=== PATIENT | male | born 1960 | race Caucasian/White ===

== ENCOUNTER 2017-01-17 06:13 | Inpatient (IN) | payer OTHER ==
[2017-01-02 09:44] LABS: URINE BILIRUBIN NEGATIVE (Negative); URINE BLOOD NEGATIVE (Negative); URINE COLOR YELLOW; URINE GLUCOSE-RANDOM* NEGATIVE (Negative); URINE KETONES TRACE (Negative); URINE LEUKOCYTES-REFLEX NEGATIVE (Negative); URINE PROTEIN (DIPSTICK) NEGATIVE (Negative); URINE SPECIFIC GRAVITY 1.015 (1.003-1.035); URINE UROBILINOGEN 0.2 E.U./dl (0.2-1.0)
[2017-01-02 09:47] LABS: CREATININE 0.7 mg/dL (0.7-1.3); POTASSIUM 4.5 mmol/L (3.5-5.1)
[2017-01-02 09:50] LABS: INR 1.1; PROTIME 11.4 Seconds (9.3-11.4)
[2017-01-17] VITALS (12 sets, daily range): BP systolic 44–136; BP diastolic 28–84
[~2017-01-17] VITALS: Ht 172.7 cm; Wt 75.3 kg
--- NOTE | ~2017-01-17 | EKG ---
[address] [address] ELECTROCARDIOGRAM REPORT Name: MARCEL BARAJAS Room #: 208-P ADM IN M.R.#: [id number] Admission: 01/17/17 Attend Phys: Kevyn Chaudhary MD Discharge: Date of : 56 Report #: [id number] THIS REPORT FOR: //name// 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
--- NOTE | ~2017-01-17 | O ---
[facility] [place] [address] [place] [address] OPERATIVE REPORT Name: MARCEL BARAJAS Room #: 208-P ADM IN M.R.#: [id number] Admission: 01/17/17 Attend Phys: Kevyn Chaudhary MD Discharge: Date of : 56 Report #: [id number] THIS REPORT FOR: //name// CC: [facility] DATE OF SERVICE: 01/17/2017 PREOPERATIVE DIAGNOSIS: End-stage degenerative arthritis, right knee with flexion contracture and varus malalignment. POSTOPERATIVE DIAGNOSIS: End-stage degenerative arthritis, right knee with flexion contracture and varus malalignment. PROCEDURE: Right total knee arthroplasty. SURGEON: Kevyn Chaudhary MD INDICATIONS: This 56-year-old gentleman presents with progressive bilateral knee pain with clinical and radiographic findings demonstrating significant varus malalignment and mild flexion contracture. Symptoms are worse on the right side. He has elected to go ahead with right total knee arthroplasty. We have discussed treatment options and risks and benefits. He and his understand well and wish to proceed. DESCRIPTION OF PROCEDURE: The patient was taken to the operating room where he was placed under general anesthesia. Prophylactic intravenous antibiotics were administered. The right knee and leg were meticulously prepped and draped and a thigh tourniquet inflated to 300 mmHg. An anterior longitudinal skin incision was made and carried through the medial retinaculum. The patella was reflected laterally. Marked degenerative change in all 3 compartments was noted. The DePuy PFC knee system was utilized and intramedullary guides were used on both the femur and the tibia. The femur was cut in 5 degrees of valgus and the tibia cut perpendicular to the long axis of bone. Sufficient bone was resected to allow correction of the mild preoperative flexion contracture and to allow correction of the moderate preoperative varus malalignment. The femur seemed best suited for a size 5 right femoral component. The tibia was best suited for a size 4 tibial component. A 10 mm polyethylene insert fit nicely and resulted in satisfactory alignment, range of motion and stability. A limited release of the medial capsule and elevation of the MCL along the medial tibial border was accomplished to allow further correction of the varus malalignment. The patellar surface was resected and a 38 mm patellar button seemed to fit nicely. Appropriate anchor holes were created. The surfaces were thoroughly irrigated and dried. The intramedullary canal was blocked with a bone block on both the femoral and tibial sides. Methyl methacrylate cement was then mixed and injected into the porous surface of the proximal tibia. The DePuy PFC size [address] [address] OPERATIVE REPORT Name: MARCEL BARAJAS Room #: 208-P [facility] IN M.R.#: [id number] Admission: 01/17/17 Attend Phys: Kevyn Chaudhary MD Discharge: Date of : 56 Report #: [id number] tibial component was impacted into position in appropriate alignment. It seated nicely and appeared to be secure. A 10 mm polyethylene insert was snapped into place. It also seated nicely and appeared to be secure. Excess cement was removed from around the margin of the plan. A press fit noncemented right size 5 femoral component was then impacted on to the distal femur. This seated nicely and appeared to be secure. A 38 mm patellar button was cemented into place using appropriate anchor holes and the methyl methacrylate cement. A patellar clamp was used until the cement had hardened. All excess cement was removed from around its margin. Once the cement was firm, range of motion, alignment, and stability were once again assessed and felt to be satisfactory. The knee demonstrated full knee extension and flexion beyond 130 degrees with satisfactory alignment. There was significant improvement in the preoperative varus and good improvement in the preoperative flexion contracture. The knee seemed stable. At this point, the knee was copiously irrigated. A single Hemovac was left in the wound exiting through a separate stab incision. The fascia was then closed with #1 Vicryl sutures. The tourniquet was deflated after a total tourniquet time of 45 minutes. The subcutaneous tissues were closed with 0 Monocryl and the skin was closed with skin mal. A sterile dressing was applied. The patient was awakened and returned to recovery room in good condition. <ELECTRONICALLY SIGNED> By: Kevyn Chaudhary MD 01/18/17 1011 1133 1145 Kevyn Chaudhary MD /nt
[~2017-01-17 06:13] MED LIST: AMLODIPINE BESY10 MG PO; ATIVAN1 MG PO; B COMPLETE1 EAC1 PO; CENTRUM SILVER1 EAC2 PO; CLONAZEPAM 1 MG1 M1 PO; DEPAKOTE500 MG PO; FLEXERIL PO; KEPPRA 500 MG500 M2 PO; MIRTAZAPINE15 M2 PO; NORCO 10-325 T1 EACH PO; VITAMIN D3400 UNIT PO; VITAMINC500 PO; ZESTRIL40 MG PO; ZOCOR20 MG PO; ZOLOFT50 MG PO
[2017-01-17 15:03] LABS: HEMATOCRIT 33.4 % (42.0-52.0); HEMOGLOBIN 11.3 gm/dL (14.0-18.0)
[2017-01-18] VITALS (9 sets, daily range): BP systolic 89–142; BP diastolic 44–85
[2017-01-18 04:10] LABS: HEMATOCRIT 25.9 % (42.0-52.0); MCH 33.5 pg (26.0-34.0); MCV 95.8 fL (80.0-100.0); RBC 2.7 mil/uL (4.50-6.00); RDW 13.1 % (10.5-14.5); WBC 9.9 thou/uL (4.0-11.0)
[2017-01-18 04:14] LABS: ALBUMIN 3.1 g/dL (3.4-5.0); CALCIUM 8.4 mg/dL (8.5-10.1); CREATININE 0.8 mg/dL (0.7-1.3); PHOSPHORUS 5.2 mg/dL (2.5-4.9)
[2017-01-19 04:10] VITALS: BP 151/75
[2017-01-19 04:56] LABS: HEMATOCRIT 22.4 % (42.0-52.0); HEMOGLOBIN 7.7 gm/dL (14.0-18.0); MCH 33.1 pg (26.0-34.0); MCHC 34.3 g/dL (28.0-37.0); MCV 96.7 fL (80.0-100.0); RBC 2.32 mil/uL (4.50-6.00); RDW 13.1 % (10.5-14.5)
[2017-01-19 05:18] LABS: CALCIUM 8.3 mg/dL (8.5-10.1); CREATININE 0.9 mg/dL (0.7-1.3); POTASSIUM 4.3 mmol/L (3.5-5.1)
[2017-01-19 08:00] VITALS: BP 132/65
[2017-01-19 20:53] VITALS: BP 126/57
[2017-01-20 03:51] LABS: HEMATOCRIT 21.8 % (42.0-52.0); HEMOGLOBIN 7.6 gm/dL (14.0-18.0); MCH 33.6 pg (26.0-34.0); MCHC 34.8 g/dL (28.0-37.0); MCV 96.7 fL (80.0-100.0); RBC 2.26 mil/uL (4.50-6.00); RDW 13.1 % (10.5-14.5)
[2017-01-20 03:57] LABS: CALCIUM 8.3 mg/dL (8.5-10.1); CREATININE 0.7 mg/dL (0.7-1.3); POTASSIUM 4.7 mmol/L (3.5-5.1)
[2017-01-20 04:28] VITALS: BP 125/69
[2017-01-20 08:00] VITALS: BP 129/60
[2017-01-20] MEDS ORDERED: IRON325 PO (11:06)
[2017-01-20] MEDS ORDERED: PERCOCET 10-321 EACH PO (11:40)
[2017-01-20] MEDS ORDERED: MS CONTIN15 MG PO (11:40)
[2017-01-20 11:43] VITALS: BP 136/84
== END 2017-01-20 14:41 | disposition home health service (06) | DRG 470 ==
LOC: 2N 06:13 → TBA 06:13 → PRE 08:50 → 5S 13:25 → PRE 13:45 → 2N 15:29 → PRE 17:01 → 5S 01-18 10:57
PROVIDERS: Hospitalist; Orthopaedic Surgery
PROC: 0SRC0J9 Replacement of Right Knee Joint with Synthetic Substitute, Cemented, Open Approach (ICD-10-PCS; principal; 2017-01-17)
DX: M17.11 Unilateral primary osteoarthritis, right knee (principal); D62 Acute posthemorrhagic anemia; E87.1 Hypo-osmolality and hyponatremia; M24.561 Contracture, right knee; I95.81 Postprocedural hypotension; G40.909 Epilepsy, unspecified, not intractable, without status epilepticus; E86.0 Dehydration; F41.8 Other specified anxiety disorders; Z79.899 Other long term (current) drug therapy; Z88.2 Allergy status to sulfonamides
CPT/HCPCS: 10081; 10785; 50010; 50101; 50415; 50954; 51130; 51225; 51412; 51771; 53000; 53364; 56525; 62110; 62900; 70005

== ENCOUNTER → 2020-12-28 | Outpatient (CLI) | payer OTHER ==
[~2020-12-28] MED LIST changes: +ATIVAN1 M1 PO; -ATIVAN1 MG PO; -B COMPLETE1 EAC1 PO; +B COMPLEX1 EACH PO; +IRON325 PO; -KEPPRA 500 MG500 M2 PO; +KEPPRA1000 MG PO; +MS CONTIN15 MG PO; +PERCOCET 10-321 EACH PO; +SINGULAIR 10 MG10 MG PO; +VITAMIN D325 MC3 PO; -VITAMIN D3400 UNIT PO
[2020-12-28 14:26] LABS: HEMATOCRIT 40.6 % (42.0-52.0); HEMOGLOBIN 13.7 gm/dL (14.0-18.0); MCH 32.9 pg (26.0-34.0); MCHC 33.7 g/dL (28.0-37.0); MCV 97.6 fL (80.0-100.0); RBC 4.16 mil/uL (4.50-6.00); RDW 13.5 % (10.5-14.5); WBC 3.6 thou/uL (4.0-11.0)
[2020-12-28 14:34] LABS: CALCIUM 9.6 mg/dL (8.5-10.1); CREATININE 1.2 mg/dL (0.7-1.3)
[2020-12-28 14:37] LABS: INR 1.1; PROTIME 11.9 Seconds (10.5-12.1)
== END ==
LOC: LAB 12:44
PROVIDERS: Orthopaedic Surgery; ATTEND Student in an Organized Health Care Education/Training Program
DX: Z01.812 Encounter for preprocedural laboratory examination (principal); Z20.822 Contact with and (suspected) exposure to COVID-19

== ENCOUNTER 2021-01-02 06:40 | Inpatient (IN) | payer OTHER ==
[2021-01-02] VITALS (11 sets, daily range): BP systolic 97–126; BP diastolic 54–70
[~2021-01-02] VITALS: Ht 152.4 cm; Wt 83.9 kg
--- NOTE | 2021-01-02 13:46 | NUR ---
At 1320 patients O2 was desating to upper 77 to 88. While asleep. No hx of sleep apnea per patient or wear o2 at home. While awake patient o2 back up to 92-94 on room air. RN placed patient on 2L nasal canula while asleep will try weaning later after anesthesia wears off.
--- NOTE | 2021-01-02 15:10 | NUR ---
PT ADMITTED RELATED TO LT TOTAL KNEE REPLACEMENT. CM REVIEWED CHART AND SPOKE WITH CARE TEAM. CM MET WITH PT AT BEDSIDE THIS DAY. PT APPEARED TO BE A&O X4. CM ROLE INTRODUCED. PT INDICATED HE HAS EPILEPSY AND ASKED THAT CM SPEAK MORE SLOWLY. PT INDICATED HE RESIDES IN A HOUSE WITH HIS SPOUSE. 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 HE STATED THERE THERE ARE 15 STEPS IN THE HOME AND THAT HE CAN SCOOT UP THEM ON HIS BACKSIDE. HE INDICATED HE HAD HIS OTHER KNEE DONE PREVIOUSLY AND HAD USED [employer] THEN. HE INDICATED THAT HE WOULD BE RECEPTIVE TO USEING THEM AGAIN UPON THIS DAY. PT STATED THAT HE HAS A FWW FOR HOME USE AND HAD ORDERED HIMSELF AN ICE MACHING OF [employer] FOR HOME USE UPON DC. PT'S PCP IS DR. JAMIE PARTIDA. CM NOTIFIED [facility] OF REFERRAL CM TO SEND CLINIC ONCE PT IS SEEN BY THERAPY. PT INDICATED HE ANTICPATES DC SATURDAY. CM FOLLOWING REGARDING DC PLANNING.
--- NOTE | 2021-01-02 19:31 | NUR ---
1915 RN IN ROOM WITH PATIENT. PATIENT IS VOICING HIS FRUSTRATIONS OF PT NOT WORKING WITH HIM TODAY AT ALL WHEN HE GOT TO THE FLOOR. RN EXPLAINED PER PROTOCOL PT IS THE FIRST PERSON TO GET UP WITH YOU AFTER HAVING A TOTAL KNEE. RN LOOKED UP ORDER AND READ IT TO THE PATIENT FOR TODAY AND TOMORROW 01/03/21.
--- NOTE | 2021-01-03 04:28 | NUR ---
PT WAS FRUSTRATED AND NOT HAPPY WITH HIS CARE AT START OF SHIFT.PT VOICED THAT THE PHYSICIAN TOLD HIM THAT PHYSCAL THERAPY WILL WORK WITH HIM WHEN HE GETS TO THE FLOOR.PT C/O BLOOD FROM HIS HEMOVAC.HE ALSO STATED THAT NO ONE OFFERED HIM PAIN MED SINCE HE GOT TO THE FLOOR.PT WAS ENCOURAGED THAT ALL HIS CONCERNS WILL BE ADDRESSED BY THIS NURSE ONCE SHE FINISHED WITH REPORT.PT WAS HAVING DIFFICULTY VOIDING AT SHIFT CHANGE.PT WAS LATER GOTTEN UP WITH GB/WALKER TO USE THE BSC,PT INSISTED ON WALKING TO THE BR.GOOD ENDURANCE NOTED.PT WAS ABLE TO VOID WHEN GOT TO THE TOILET.PAIN MED ADMINISTERED AFTERWARDS. TELEVISION SCHEDULE COORDINATOR ON DUTY NOTIFIED OF PT'S MEDICATION CONCERN,ALL HIS HS MEDS WAS RESTARTED AND ADMINISTERED.PT ENCOURAGED TO USE HIS INCENTIVE SPIROMETER WHILE AWAKE.PT CONT ON IVF AND IV ABX.DRSG TO HIS L KNEE INTACT,NASIR HOSE SOILED WITH BLOOD.SCD AND POLAR PACK IN PLACE.PT SLEEPING ON HIS BED AT THIS TIME,CALL LIGHT WITHIN REACH. AND IV ABX
[2021-01-03 04:42] VITALS: BP 113/57
[2021-01-03 06:04] LABS: ABSOLUTE NEUTROPHILS 7.4 thou/uL (1.4-8.2); BASOPHILS 0.2 % (0.0-2.0); HEMATOCRIT 23.9 % (42.0-52.0); HEMOGLOBIN 8.2 gm/dL (14.0-18.0); LYMPHOCYTES 14.3 % (24.0-44.0); MCH 33.2 pg (26.0-34.0); MCHC 34.3 g/dL (28.0-37.0); MCV 96.6 fL (80.0-100.0); MONOCYTES 11.5 % (1.0-8.0); PLATELET COUNT 188 thou/uL (150-400); RBC 2.48 mil/uL (4.50-6.00); RDW 13.1 % (10.5-14.5)
[2021-01-03 06:23] LABS: CALCIUM 8.1 mg/dL (8.5-10.1); CREATININE 1.4 mg/dL (0.7-1.3); MAGNESIUM 1.8 mg/dL (1.8-2.4)
[2021-01-03 06:27] LABS: POTASSIUM 5.7 mmol/L (3.5-5.1)
--- NOTE | 2021-01-03 08:22 | O ---
[facility] [address] [address] OPERATIVE REPORT Name: MARCEL BARAJAS Room #: 458-P ADM IN M.R.#: [id number] Admission: 01/02/21 Attend Phys: Jamie Chaudhary MD Discharge: Date of : 56 Report #: [id number] THIS REPORT FOR: cc: JAMIE PARTIDA MD Physician not on staff Jamie Chaudhary MD ~ DOC #: [id number] Jamie Chaudhary MD DATE OF SERVICE: 01/02/2021 PREOPERATIVE DIAGNOSIS: End-stage degenerative osteoarthritis, left knee with varus malalignment. POSTOPERATIVE DIAGNOSIS: End-stage degenerative osteoarthritis, left knee with varus malalignment. PROCEDURE: Left total knee arthroplasty. SURGEON: Jamie Chaudhary MD INDICATIONS: This 60-year-old gentleman has progressive moderately severe degenerative arthritis involving both knees. He underwent right total knee replacement in the past with good results. He now has progressive varus malalignment and instability involving the left knee. He has decided to go ahead with left total knee replacement. DESCRIPTION OF PROCEDURE: The patient was taken to the operating room where he was placed under general anesthesia. Prophylactic intravenous antibiotics were administered. A left femoral nerve block was also applied. The left knee and leg were then meticulously prepped and draped. A thigh tourniquet was applied and inflated to 300 mmHg. An anterior longitudinal skin incision was made. This was carried through the medial retinaculum and the patella was reflected laterally. Marked degenerative change in all 3 compartments was noted. He has significant varus malalignment and significant internal tibial torsion making overall realignment and implantation somewhat more difficult. The Edmondson and NephA Little Easier Recovery knee system was utilized. Intramedullary guides were used on both the femur and the tibia. The femur was cut in 5 degrees of valgus and the tibia was cut perpendicular to long axis of the bone, this resulted in significant improvement in the preoperative varus malalignment. The femur was sized and felt best suited for a size 6 left femoral component. The tibia was felt best suited for a size 6 tibial component. A trial reduction was performed and a 9 mm insert fit nicely, this resulted in full knee extension and flexion beyond 135 degrees with satisfactory stability. Alignment was much improved from the preoperative state. The patella surface was resected and a 38 mm patella button fit appropriately. Appropriate anchors holes were created. The patella button seemed to be stable and fit nicely and patella tracks well. [address] [address] OPERATIVE REPORT Name: MARCEL BARAJAS Room #: 458-P [facility] IN M.R.#: [id number] Admission: 01/02/21 Attend Phys: Jamie Chaudhary MD Discharge: Date of : 56 Report #: [id number] At this point, the trial components were removed. The bony surfaces were thoroughly irrigated and dried. Intramedullary canal was blocked with bone block on both the femoral and tibial sides. Methyl methacrylate cement was mixed and injected into the porous surface of the tibia. The Edmondson and Nephew size 6 Bailey II left tibial base plate was applied. This was impacted into position and seated nicely. Excess cement was removed around this margin. A 9 mm cruciate retaining Legion high flexion polyethylene insert was then applied. This seated nicely and appeared to be secure. The size 6 left cruciate retaining Legion porous femoral component was impacted on the distal femur, it seated nicely and appeared to be secure. A 38 mm patella button was cemented into place and secured with a patellar clamp until the cement had hardened. Once the cement had hardened, range of motion, alignment and stability were once again assessed and felt to be satisfactory. There was marked improvement with regards to the preoperative varus malalignment. There is still moderate tibial internal torsion, which appears to be a separate tibial deformity and does not really involve the knee joint itself. The patella tracks nicely and appears to be stable. At this point, the tourniquet was deflated after a total tourniquet time of 60 minutes. Good hemostasis was confirmed. A single Hemovac was left in the wound exiting through a separate lateral stab incision. The fascia was closed with multiple #1 Vicryl sutures. The subcutaneous tissues were closed with 0 Monocryl. The skin was closed with skin mal. A sterile dressing was applied. The patient was awakened and returned to recovery room in good condition. Jamie Chaudhary MD DJC/KDA <ELECTRONICALLY SIGNED> By: Jamie Chaudhary MD 01/03/21 0822 0930 1041 Jamie Chaudhary MD /nt
[2021-01-03 08:47] VITALS: BP 120/55
[2021-01-03 10:48] LABS: CALCIUM 8.3 mg/dL (8.5-10.1); CREATININE 1.3 mg/dL (0.7-1.3); POTASSIUM 5.4 mmol/L (3.5-5.1)
--- NOTE | 2021-01-03 16:01 | NUR ---
PT INDICATED THAT PT WOULD BENEFIT FROM CRUTCHES UPON DC. PROVIDER JOSE MANUEL DOESN'T TAKE THE INSURANCE, CM TRIED [facility] THEY DON'T ISSUE CRUTCHES, CM TRIED [employer] THEY COULDN'T ISSUES. CM CALLED 5 OTHER DME PROVIDERS AND THEY EITHER DON'T ISSUE CRUTCHES OR DON'T TAKE INSURANCE. CM REQUESTED AND RECIEVED PERMISSION TO VOUCHER CRUTCHES FOR DC TOMORROW THROUGH [employer].
--- NOTE | 2021-01-03 16:38 | NUR ---
ASSUMED PT CARE THIS AM. PT A&OX4. UPON SHIFT CHANGE AROUND 0650, NIGHT NURSE SHOWED THIS RN THE DRIED DRAINAGE ON THE PATIENTS NASIR HOSE FROM SURGERY ON THE LEFT KNEE. BOTH NURSES ASKED TO CHANGE THE PATIENT'S NASIR HOSE AND PATIENT REFUSED TO HAVE NASIR HOSE CHANGED. THIS RN HAS ASKED TO CHANGE THE PATIENT'S NASIR HOSE TWICE MORE SINCE THIS AM AND PATIENT HAS REFUSED ALL THREE TIMES. PATIENT TOLD THE NURSE LEAN SENSEI THAT HE DID NOT WANT THE NASIR HOSE CHANGED EVEN THOUGH IT HAS DRIED DRAINAGE. THE PATIENT HAS BEEN MEDICATED FOR PAIN WHEN NEEDED, BUT PATIENT HAS ALSO STATED HE DOES NOT WANT TO OVERDO IT ON PAIN MEDICATION WHILE HE IS HERE. PATIENT DENIED PAIN MEDICATION BEFORE THERAPY THIS AM, WHEN REASSESSED AFTER THERAPY THIS AFTERNOON, PATIENT WAS IN LEVEL 10 PAIN AND WAS GIVEN PAIN MEDICATIONS PER EMAR. PATIENT TOLD THE TECH "IT IS OBVIOUS THE NURSES DON'T KNOW WHAT THEY ARE DOING". PATIENT DOES NOT WANT POLAR PACK ON AT THIS TIME WHEN OFFERED. NOTIFIED PHYSICIAN THAT PATIENT REPORTS TAKING 750 MG OF DEPAKOTE IN THE AM AND 500 MG IN THE EVENING, ORDERS HAVE NOT BEEN CHANGED OF YET. PATIENT WAS GIVEN 750 MG OF DEPAKOTE INSTEAD OF ORDERED 1000 MG THIS AM. PATIENT IV IS PATENT, SALINE LOCKED. UP WITH ASSIST OF ONE WITH A WALKER. PATIENT REMAINS CONTINENT.
[2021-01-03 17:07] VITALS: BP 120/56
[2021-01-03 19:10] VITALS: BP 109/61
--- NOTE | 2021-01-04 03:20 | NUR ---
PT'S WAS IN THE ROOM VISITING AT SHIFT CHANGE.PT C/O PAIN ON HIS L KNEE,RATED PAIN AT 9/10.PT REF PAIN MED WHEN OFFERED TO HIM.ASSISTANT DESIGNER WAS OBSERVED WALKING PT TO THE TOILET WHEN THIS NURSE WAS ROUNDING.PT COMPLAINED THAT HIS DRSG WAS NOT CHANGED DURING THE DAY.THIS NURSE OFFERED TO CHANGE HIS DRSG BEFORE HE GOES TO BED BUT PT REF.PT STATED THAT HE WOULD WAIT TILL MORNING TO HAVE IT CHANGED.AT APPROX 0200,THIS NURSE WAS ADMINISTERING MED TO ANOTHER PT WHEN SHE HEARD THE ASSISTANT DESIGNER SHOUTING HER NAME.I RAN OUT OF THE PTS ROOM I WAS IN TO 458.ON GETTING TO THE ROOM, I OBSERVED THE PT STANDING IN HIS BR HOLDING UNTO THE WALKER AND THE ASSISTANT DESIGNER WAS STANDING BEHIND HIM HOLDING UNTO THE GAIT BELT ON HIM.ACCORDING TO THE ASSISTANT DESIGNER SHE STATED THAT SHE GOT THE PT UP TO THE TOILET TO URINATE AND ON GETTING TO THE TOILET,PT STARTED FALLING BACKWARDS AND THAT WAS WHEN SHE STARTED CALLING FOR HELP.PT WAS SAFELY PUT IN A W/C INTO HIS ROOM.PT REF TO GET IN BED WHILE IN THE ROOM.PT INSISTED THAT WE SHOULD GIVE HIM TIME TO REST THEN TAKE HIM BACK TO THE TOILET.PT SAT IN THE W/C FOR TWENTY MIN BEFORE HE DECIDED TO TRY AGAIN.PT WAS OFFERED THE URINAL A COUPLE OF TIMES BUT HE REF IT.PT WAS WHEELED BACK TO THE TOILET AND WAS ABLE TO URINATE.IN THE PROCESS OF DOING SO, HE ACCIDENTALY DROPPED THE URINAL AND GOT HIS SOCKS,NASIR HOSE AND ED WRAP WET.PT WAS SAFELY PUT BACK IN BED AND THIS NURSE OFFERED TO CHANGE HIS DRSG,NASIR HOSE AND ED WRAP SINCE THEY WERE WET.PT STATED"YOU CAN DO ANYTHING YOU WANT WITH THE R LEG BUT LEAVE THE L LEG ALONE.I DO NOT WANT IT CHANGED AT THIS TIME."THE R NASIR HOSE WAS CHANGED AND PT REF THE TRELL SCD TO BE PUT BACK ON HIM.PT ALSO STATED "I WISH I HAD FALLEN SO THAT I WILL GAVINO THIS HOSPITAL" WHILE THIS NURSE WAS STILL IN PT'S ROOM.PAIN MED ADMINISTERED PER PT'S REQUEST. ABOUT 0400 PT CALLED OUT REQUESTING FOR WARM BLANKET AND HIS HEATING PAD.PT RECEIVED A WARM BLANKET BUT WAS TOLD THAT THIS NURSE WILL INQUIRE IF HE CAN USE HIS HEATING PAD FROM HOME IN THE HOSPITAL.ACCORDING TO CORPORATE COORDINATOR AND THE MAINTENANCE,PT CANNOT USE HIS PERSONAL HEATING PAD HERE IN THE HOSPITAL.PT WAS INFFORMED AND HE WAS NOT HAPPY ABOUT IT.PT STATED "I AM DONE WITH THIS PLACE".POLAR PACK IN PLACE.CALL LIGHT WITHIN REACH.
[2021-01-04 05:13] VITALS: BP 132/60
[2021-01-04 06:13] LABS: HEMATOCRIT 23.8 % (42.0-52.0); HEMOGLOBIN 8.2 gm/dL (14.0-18.0); MCH 33.2 pg (26.0-34.0); MCHC 34.3 g/dL (28.0-37.0); MCV 96.8 fL (80.0-100.0); RBC 2.46 mil/uL (4.50-6.00); RDW 13.4 % (10.5-14.5); WBC 11.1 thou/uL (4.0-11.0)
[2021-01-04 06:23] LABS: CALCIUM 8.9 mg/dL (8.5-10.1); CREATININE 1.4 mg/dL (0.7-1.3); POTASSIUM 5.1 mmol/L (3.5-5.1)
[2021-01-04 07:12] VITALS: BP 134/62
[2021-01-04 11:04] VITALS: BP 121/61
--- NOTE | 2021-01-04 12:28 | NUR ---
PT HAD LAB COMPLETED THIS AM. PT HAD BEEN SEEN BY PT AND CLEARED FOR DC. PT IS ACCEPTED FOR HH SERVICES PT AND NURSING WITH [facility]. LIASUDARSHAN JAFFE VISITED WITH PT AT BEDSIDE PRIOR TO DC THIS DAY WELL. CM MET WITH PT TO INFORM HIM THAT PROVIDER JOSE MANUEL [place] ISSUE HIM CRUTCHES UPON DC BUT PT INDICATED THAT HE HAS FOUND A FRIEND WHO HAD A PAIR THAT HE COULD BORROW UPON DC AND HE DIDN'T WISH TO HAVE ANY CRUTCHES ISSUED. ANTICPATE PT DISCHARGING HOME TODAY. PT'S SPOUSE TO TRANSPORT. CM TO FAX HH ORDERS ONCE COMPLETED.
[2021-01-04] MEDS ORDERED: XARELTO10 MG PO (12:56)
--- NOTE | 2021-01-04 20:17 | NUR ---
Received awake on bed. On room air. Vital signs stable. On regular diet- tolerating well; no nausea, no vomiting and no abdominal pain noted. On MS, not on telemetry, no complains and signs of chest pain, crushing sensation and heaviness. Assisted in ADLs. Continent of bowel and bladder, able to go to the toilet with mod assist, gait belt and walker, falls bundle in place. With SL at R FA. Post op site- with dried blood; as per prev RN's report pt has been refusing to have dressing and NASIR hose changed; polar pack and SCDs in place. Complained of pain, due PRN pain meds given as prescribed. Pt verbally abusive at the start of the shift saying he was 'sabotaged' by previous shift and they were planning 'revenge' on him, informed pt that none was planned against him and pt still remained upset; pt advocate and nurse industrial production manager informed re: this. At the beggining of shift pt complained that his polar pack was not working, checked and found out that it wasn't plugged fully, apologized re: this and he still said that 'they did it on purpose'. Pt seen by Dr Chuadhary and Dr Baptiste. Possible discharge once cleared by PT. Dr Baptiste ordered cortisol test, coordinated with lab and pharmacy- done as per protocol. Pt seen by Neftali(PT)- cleared; able to walk in the hallway and other test were done. Pt requesting to have Dr Baptiste talk to his brother re: recent test ordered- Dr Baptiste informed and number provided- updated pt that Dr Baptiste was informed and will call his brother. Called Dr Chaudhary to update re: pt's status and to obtain d/c orders; Lavern(Dr Chaudhary's nurse called back and informed her that Dr Baptiste already did d/c orders(home with ), as per Lavern- no further orders from their end- informed re: this, set up. Pt agreed to have ZITA dressing and NASIR hose changed this PM- pain meds given; dressing changed as per protocol; no futher complains made and was able to tolerate COD. As per Dr Baptiste, no need to wait for Cortisol test results prior to d/c he said he will just check it later- pt informed re: this. Discharge instructions, follow up schedule, post op care given and instructed- no further questions made. Discharge forms signed. Pt brought out of the unit via wheelchair with his personal belongings; fetched by his . IV discontinued, no telemetry noted. Patient discharged.
[2021-01-05 16:06] LABS: CORTISOL 30 MIN 21.2 ug/dL (Not Estab.); CORTISOL 60 MIN 26.2 ug/dL (Not Estab.)
[2021-01-06 08:51] LABS: CORTISOL BASELINE 9.6
== END 2021-01-04 16:03 | disposition home health service (06) | DRG 470 ==
LOC: 4W 06:40 → TBA 06:40 → PRE 09:58 → 4W 13:09 → PRE 16:51 → 4W 01-04 16:03
PROVIDERS: Hospitalist; Nurse Practitioner; ADMIT Orthopaedic Surgery; ATTEND Orthopaedic Surgery
PROC: 0SRD0J9 Replacement of Left Knee Joint with Synthetic Substitute, Cemented, Open Approach (ICD-10-PCS; principal; 2021-01-02)
PROC: 3E0T3BZ Introduction of Anesthetic Agent into Peripheral Nerves and Plexi, Percutaneous Approach (ICD-10-PCS; principal; 2021-01-02)
DX: M17.12 Unilateral primary osteoarthritis, left knee (principal); E87.1 Hypo-osmolality and hyponatremia; I10 Essential (primary) hypertension; F41.9 Anxiety disorder, unspecified; E78.5 Hyperlipidemia, unspecified; E87.5 Hyperkalemia; F32.9 Major depressive disorder, single episode, unspecified; E78.00 Pure hypercholesterolemia, unspecified; G40.909 Epilepsy, unspecified, not intractable, without status epilepticus; Z88.2 Allergy status to sulfonamides; Z88.1 Allergy status to other antibiotic agents; M21.162 Varus deformity, not elsewhere classified, left knee
CPT/HCPCS: 10047; 50010; 50101; 50415; 50954; 51130; 51225; 51320; 51412; 52001; 52282; 56525; 57095; 57103; 57104; 57180; 58449; 62110; 62900; 64042; 70005

== ENCOUNTER 2021-01-05 22:00 | Inpatient (IN) | payer OTHER ==
[~2021-01-05] VITALS: Ht 177.8 cm; Wt 83.9 kg
--- NOTE | ~2021-01-05 | EMS ---
[facility] [address] [place] [address] EMS Patient Care Report Name: MARCEL BARAJAS Room #: 170-6 ADM IN M.R.#: [id number] Admission: 01/05/21 Attend Phys: Ayush Dc MD Discharge: Date of : 56 Report #: [id number] THIS REPORT FOR: //name// Report Transmitted: 01/05/2021 22:39 EMS Care Summary [facility] MED-ACT Incident [id number] @ 01/05/2021 21:07 Incident Location [address] [place] [address] Patient MARCEL BARAJAS Male, 60 Years 1960 Patient Address [id number] [place] [address] Chief Complaint "I think his sodium is low" Disposition Transported No Lights/[place] Reason Psychiatric Problem/Abnormal Behavior/Suicide Attempt Transported To [facility] Narrative We arrived on scene and were met by [employer]PP[employer] outside of the residence. OPPD stated that there was only one person needing assistance at the residence. The pt inside had a knee replacement on Saturday and his sodium was low and his believes it is low again and wanted assistance getting the pt into her vehicle. The pt had told his and OPPD he was not going to the hospital in the ambulance, but agreed to going in her vehicle. Upon entry to the house the pt was found sitting reclined in a chair with his legs propped up and a cooler hooked up to the pt L knee to provide cooling to the L knee that was replaced. The pt was speaking nonsense. Every question that was asked was answered with talk about "stocks" and "how many shares". [facility] [address] [place] [address] EMS Patient Care Report Name: MARCEL BARAJAS Room #: 170-6 ADM IN M.R.#: [id number] Admission: 01/05/21 Attend Phys: Ayush Dc MD Discharge: Date of : 56 Report #: [id number] The pt said the pt becomes confused when his sodium gets low. The pt sodium had been low in the hospital following his knee replacement, but the pt was discharged. Today around 1600 hrs is when the pt noticed the pt getting confused. The continued to be confused throughout the evening, so the pt called 911. The pt continued to say he did not want to go in an ambulance. The pt was assisted to slide over on to the stairchair, which did create some discomfort. When we got the pt outside on the stairchair, the pt asked the pt to consider going by ambulance so he could have his legs outstretched and be more comfortable. The pt agreed to the idea of transporting in the ambulance and was lifted via 2 person lift to the cot. Pt continued to be confused en route to the ED. Pt had no change in condition. Pt care was transferred to [facility] staff without incident. Initial Vitals @21:52P: 112,BP: 143/55,SpO2: 100, @21:42P: 108,R: 18,BP: 114/71,Pain: 0/10,GCS: 14,Temp: 98.3F,Glucose: 120,SpO2: 95,Revised Trauma: 12, Assessments @21:52MENTAL:Confused,Person Oriented,Place Oriented,SKIN:HEENT:LUNG SOUNDS:ABDOMEN:PELVIS//GI:EXTREMITIES:PULSE:NEURO: Impression Altered Mental Status Procedures @21:52Surgical Mask on PatientResponse: Unchanged Timeline 21:05,Call Received 21:05,Psap Call 21:07,Dispatched 21:09,En Route 21:23,On Scene 21:26,At Patient 21:42,BP: 114/71 M,PULSE: 108,RR: 18 R,SPO2: 95 Ox,ETCO2: ,B,PAIN: 0,GCS: 14, 21:43,Depart Scene 21:52,Surgical Mask on Patient,Response: Unchanged 21:52,BP: 143/55 M,PULSE: 112,RR: R,SPO2: 100 Ox,ETCO2: ,BG: ,PAIN: ,GCS: , 21:58,At Destination 22:15,Call Closed Disclaimer v1.1 Copyright 2020 [employer] [address] [address] EMS Patient Care Report Name: MARCEL BARAJAS Room #: 170-6 ADM IN M.R.#: [id number] Admission: 01/05/21 Attend Phys: Ayush Dc MD Discharge: Date of : 56 Report #: [id number] This EMS Care Summary contains data elements from the applicable legal record (which may be displayed differently). It is designed to provide pertinent information for the following purposes: continuity of care, clinical quality, and state data reporting. The complete legal record is available to ED staff and administrators of the receiving hospital in [facility]'s Patient Tracker. All data is provided "as is."
[~2021-01-05 22:00] MED LIST changes: +XARELTO10 MG PO
[2021-01-05 22:02] VITALS: BP 114/51
[2021-01-05 22:16] LABS: HEMATOCRIT 21.4 % (42.0-52.0); HEMOGLOBIN 7.4 gm/dL (14.0-18.0); MCH 33.7 pg (26.0-34.0); MCHC 34.6 g/dL (28.0-37.0); MCV 97.3 fL (80.0-100.0); PLATELET COUNT 225 thou/uL (150-400); RDW 13.4 % (10.5-14.5); WBC 10.8 thou/uL (4.0-11.0)
[2021-01-05 22:32] LABS: ANION GAP 14 mmol/L (7-16); BUN 21 mg/dL (7-18); CALCIUM 9.3 mg/dL (8.5-10.1); CHLORIDE 87 mmol/L (98-107); CO2 19 mmol/L (21-32); GLUCOSE 103 mg/dL (74-106); POTASSIUM 4.2 mmol/L (3.5-5.1); SODIUM 120 mmol/L (136-145)
[2021-01-05 22:47] LABS: ALBUMIN 3.2 g/dL (3.4-5.0); MAGNESIUM 1.8 mg/dL (1.8-2.4); SGOT 22 U/L (15-37); SGPT 17 U/L (16-63); TOTAL PROTEIN 6.6 g/dL (6.4-8.2); TROPONIN-I <0.06 ng/mL (<0.06)
[2021-01-05 23:27] VITALS: BP 114/51
[2021-01-05 23:53] LABS: ABSOLUTE NEUTROPHILS 8.3 thou/uL (1.4-8.2); METAMYELOCYTES 1 %
[2021-01-06] VITALS (8 sets, daily range): BP systolic 100–142; BP diastolic 45–71
[2021-01-06 00:25] LABS: URINE BILIRUBIN NEGATIVE (Negative); URINE BLOOD NEGATIVE (Negative); URINE CLARITY CLEAR; URINE COLOR YELLOW; URINE GLUCOSE-RANDOM* NEGATIVE (Negative); URINE KETONES 2+ (Negative); URINE LEUKOCYTES-REFLEX NEGATIVE (Negative); URINE NITRITE-REFLEX NEGATIVE (Negative); URINE PROTEIN (DIPSTICK) TRACE (Negative); URINE UROBILINOGEN 0.2 E.U./dl (0.2-1.0)
--- NOTE | 2021-01-06 04:32 | NUR ---
Arrived from ER around 0045. Able to state name and bday only. Pt. has been reoriented. Medicated for pain x1 with some relief. Seizure precaution initiated. No seizure activity. Left knee with dressing , small amount of dried dge. Pt. requested for ice pack ,applied to left knee. Nas mady hose and SCD's in place. Bed alarm on. He uses call light appropriately. C/O of being hungry , turkey sandwich provided. He also requested to stand up to use urinal and was able to void 525 ml with 46 ml of PVR. Pt. still awake at this time watching TV since arrival from ER.
[2021-01-06 05:31] LABS: MCH 33.5 pg (26.0-34.0); WBC 10.1 thou/uL (4.0-11.0)
[2021-01-06 05:32] LABS: CALCIUM 8.3 mg/dL (8.5-10.1); CREATININE 1.5 mg/dL (0.7-1.3); MAGNESIUM 1.8 mg/dL (1.8-2.4); POTASSIUM 4.2 mmol/L (3.5-5.1)
[2021-01-06 05:33] LABS: ABSOLUTE NEUTROPHILS 7.4 thou/uL (1.4-8.2); BASOPHILS 0.2 % (0.0-2.0); LYMPHOCYTES 12.6 % (24.0-44.0); MCHC 34.8 g/dL (28.0-37.0); MCV 96.4 fL (80.0-100.0); MONOCYTES 14.2 % (1.0-8.0); PLATELET COUNT 213 thou/uL (150-400); RBC 1.87 mil/uL (4.50-6.00); RDW 13.3 % (10.5-14.5)
[2021-01-06 05:39] LABS: HEMOGLOBIN 6.3 gm/dL (14.0-18.0)
[2021-01-06 05:40] LABS: HEMATOCRIT 18.1 % (42.0-52.0)
--- NOTE | 2021-01-06 05:50 | NUR ---
Critical hgb/hct of 6.3/18.1 reported to APPLIED PSYCHOLOGY CHAIR with orders received.
--- NOTE | 2021-01-06 08:21 | EKG ---
[address] [address] ELECTROCARDIOGRAM REPORT Name: MARCEL BARAJAS Room #: 361-P ADM IN M.R.#: [id number] Admission: 01/05/21 Attend Phys: Ayush Dc MD Discharge: Date of : 56 Report #: [id number] [facility] ED Test Date: 2021-01-05 Test Time: 22:18:08 Pat Name: MARCEL BARAJAS Department: Room: 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
--- NOTE | 2021-01-06 11:23 | NUR ---
1049 transfusion completed, no rractions noted. lungs clear, vitals signs stable
--- NOTE | 2021-01-06 13:47 | NUR ---
ASSESSMENT: CM REVIEWED CHART AND MET WITH PATIENT. PT IS ALERT AND ORIENTED X4. PT JUST RECENTLY LEFT [facility] AFTER A TOTAL KNEE REPLACEMENT AND DISCHARGED ON 01/04 WITH [facility]. PT NOW ADMITS DUE TO DEHYDRATION AND RENAL INSUFFICIENCY. PT REPORTS THAT HE LIVES IN A HOUSE WITH HIS SPOUSE. PT REPORTS HAVING ABOUT 3 STEPS TO ENTER THE HOME AND REPORTS IF HE GOES SLOW HE DOES FINE. PT STATES HE HAS ABOUT 15 STEPS WITH HANDRAILS TO HIS BEDROOM. PT REPORTS HAVING BORROWED CRUTCHES AT HOME WELL A WALKER TO ASSIST WITH AMBULATION. LIASON FROM [facility] IS FOLLOWING PATIENT AND FAXED PAPERWORK. IPTS PCP IS DR. JAMIE PARTIDA. IF PATIENT DISCHARGES OVER THE WEEKEND CONTACT [facility] AT [phone] TO NOTIFY THEM AND FAX DISCHARGE ORDERS TO [phone].
--- NOTE | 2021-01-06 13:53 | NUR ---
CM ATTEMPTED TO MEET WITH PATIENT THIS AM BUT PT GETTING EEG. CM ATTEMPTED TO REVISIT PATIENT THIS AFTERNOON AND CM WAS INFORMED PATIENT HAD LEFT THE UNIT AMA.
--- NOTE | 2021-01-06 18:22 | NUR ---
1430 pt had no urine out since this am, bladder scan pt had about 680, helped pt to bathroom, had a 700 urine output in his urinal. pt medicated for pain. polar ice refilled with ice. pt visiting, updated about pt care. pt denies any need sana. will continue to monitor
[2021-01-06 18:24] LABS: HEMATOCRIT 20.3 % (42.0-52.0); HEMOGLOBIN 7.1 gm/dL (14.0-18.0)
--- NOTE | 2021-01-07 03:02 | NUR ---
PT IS UP WITH ASSISTANCE. PROGRESSING TOWARDS PLAN OF CARE DC GOALS. VSS. AFEBRILE. DENIES C/O PAIN TO LEFT KNEE. HAS BEEN ABLE TO VOID WITHOUT COMPLAINTS OF RETENTION WITH ASSISTANCE STANDING AT THE BEDSIDE. FALL PRECAUTIONS IN PLACE, CALL LIGHT IS WITHIN REACH.
[2021-01-07 03:13] LABS: HEMATOCRIT 22.1 % (42.0-52.0); HEMOGLOBIN 7.6 gm/dL (14.0-18.0); MCH 33.4 pg (26.0-34.0); MCHC 34.4 g/dL (28.0-37.0); MCV 97.1 fL (80.0-100.0); RBC 2.27 mil/uL (4.50-6.00); RDW 13.5 % (10.5-14.5); WBC 7.6 thou/uL (4.0-11.0)
[2021-01-07 03:22] LABS: CALCIUM 8.5 mg/dL (8.5-10.1); CREATININE 0.8 mg/dL (0.7-1.3); MAGNESIUM 1.9 mg/dL (1.8-2.4); POTASSIUM 4.5 mmol/L (3.5-5.1)
[2021-01-07 04:00] VITALS: BP 156/81
[2021-01-07 08:06] VITALS: BP 144/75
[2021-01-07 11:15] VITALS: BP 133/65
[2021-01-07 14:15] VITALS: BP 133/65
== END 2021-01-07 16:00 | disposition home health service (06) | DRG 682 ==
LOC: ER 22:00 → 3W 23:15 → EROBS 23:15 → 3W 01-06 00:35
PROVIDERS: Emergency Medicine; Nurse Practitioner; ADMIT Internal Medicine; ATTEND Internal Medicine
PROC: 30233N1 Transfusion of Nonautologous Red Blood Cells into Peripheral Vein, Percutaneous Approach (ICD-10-PCS; principal; 2021-01-06)
DX: N17.9 Acute kidney failure, unspecified (principal); G92 Toxic encephalopathy; E87.1 Hypo-osmolality and hyponatremia; E86.0 Dehydration; I10 Essential (primary) hypertension; E78.00 Pure hypercholesterolemia, unspecified; F41.9 Anxiety disorder, unspecified; F32.9 Major depressive disorder, single episode, unspecified; E78.5 Hyperlipidemia, unspecified; D64.9 Anemia, unspecified; G40.909 Epilepsy, unspecified, not intractable, without status epilepticus; Z96.651 Presence of right artificial knee joint; Z79.01 Long term (current) use of anticoagulants; Z79.899 Other long term (current) drug therapy; Z88.1 Allergy status to other antibiotic agents; Z88.2 Allergy status to sulfonamides
CPT/HCPCS: 10879